=== PATIENT | female | born 1975 | race Caucasian/White ===

== ENCOUNTER 2018-09-11 12:00 | Emergency (ER) | payer OTHER ==
[~2018-09-11] VITALS: Ht 160 cm; Wt 75.9 kg
[2018-09-11 14:22] VITALS: BP 127/94
== END 2018-09-11 14:28 | disposition home or self-care (01) ==
LOC: EMS 12:01
DX: S80.01XA Contusion of right knee, initial encounter (principal); W01.0XXA Fall on same level from slipping, tripping and stumbling without subsequent striking against object, initial encounter; Y93.89 Activity, other specified; Y92.89 Other specified places as the place of occurrence of the external cause; Y99.8 Other external cause status
CPT/HCPCS: 29505

== ENCOUNTER 2024-08-21 21:12 | Emergency (ER) | payer SELFPAY | END 2024-08-21 22:00 | disposition left against medical advice (07) | LOC: EDUNIT# 21:12 → EMS 21:12 | DX: Z53.21 Procedure and treatment not carried out due to patient leaving prior to being seen by health care provider (principal) ==